=== PATIENT | male | born 2000 | race Caucasian/White ===

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

== ENCOUNTER 2024-04-04 17:17 | Emergency (ER) | payer MEDICAID, SELFPAY ==
[2024-04-04 17:20] VITALS: BP 125/107; PULSE 99; RESP 18; TEMP 36.6; O2SAT 98
--- NOTE | 2024-04-04 18:00 | EDS_ITS ---
HPI History of Present Illness Chief Complaint: Headache Informant: patient Onset/Context/Timing Onset: Weeks (2) Context: Sudden Timing: Intermittent Quality -Headache: Positive for Sharp and Dull Location: Left side of head Worsened by: Nothing Relieved by: Nothing Associated Symptoms/Injury Associated Symptoms: Negative for Fever, Nausea, Vomiting, Sore Throat, Sinus Pressure, Numbness, Tingling, Preceding Aura, Visual Changes, Blurred Vision, Photophobia or Visual Loss Narrative Narrative: Patient presents with a headache that has been intermittent over the past 2 weeks. Patient states that it comes on rather suddenly. Patient states nothing makes it better and nothing makes it worse. Patient states his pain is over the left side of his head. Patient describes his pain as sharp and dull. Patient denies any fevers or chills. Patient denies any nausea or vomiting. Patient denies any sore throat or sinus pressure. Patient denies any photophobia or visual changes. PFSH PFSH Home Medications ?Medication ?Instructions ?Recorded ?Last Taken ?Type NK 08/10/18 Unknown History Allergy/AdvReac Type Severity Reaction Status Date / Time No Known Allergies Allergy Verified 04/04/24 17:19 Family History Other Alcoholism /alcohol abuse Anxiety and depression Hypertension Surgical History History of oral surgery Social History Smoking Status: Current every day smoker tobacco type: e-cigarettes Electronic Cigarette Use: without nicotine alcohol intake: former substance use type: does not use additional social history: DOES NOT USE ASPIRIN DOES USE IBUPROFEN NEEDED ROS ROS ED Constitutional Constitutional ED: Denies chills or fever(s) Eyes Eyes: Denies blurry vision or change in vision ENT ENT ED: Denies rhinorrhea or sore throat Cardiovascular Cardiovascular: Denies chest pain or palpitations Respiratory/Chest Respiratory/Chest: Denies cough or dyspnea Gastrointestinal Gastrointestinal: Denies nausea or vomiting Genitourinary Genitourinary ED: Denies dysuria or hematuria Musculoskeletal Musculoskeletal: Reports back pain; Denies neck pain Integumentary Denies abscess or rash Neurologic Neurologic: Reports headache(s); Denies weakness Allergic/Immunologic Allergic/Immunologic ED: Denies mouth swelling or urticaria EXAM Physical Exam Const Vital Signs: 04/04/24 17:20 Temperature 97.9 F Temperature Source Temporal Pulse Rate 99 Respiratory Rate 18 Blood Pressure 125/107 H Blood Pressure Mean 113 Pulse Ox 98 Oxygen Delivery Method Room Air Positive well nourished and well developed General Appearance ED: well developed and NAD HEENT Reports moist mucous membranes atraumatic Eyes PERRL and EOMs intact bilaterally Neck supple, no meningeal signs and no JVD Resp normal respiratory effort and clear to auscultation bilaterally Cardio regular rate and regular rhythm GI non-tender and non-distended Neuro oriented x3, CN's II-XII intact bilaterally and no sensory deficits noted Srinath Coma Scale: document GCS findings Spontaneous Obeys Commands Oriented 15 Sensorium / Orientation: awake and alert Speech: speech normal Motor Exam: strength 5/5 throughout MDM MDM MDM Narrative Medical decision making narrative: Differential diagnosis includes migraine headache, tension headache, cluster headache, intracranial bleeding, and temporal arteritis. CT scan of the brain will be obtained to assess for intracranial bleeding. CBC will be obtained to assess for leukocytosis and anemia. Basic metabolic profile will be obtained to assess for electrolyte abnormality and renal function. Sed rate will be obtained to assess for temporal arteritis. Lab Data Attestation: I reviewed the patient's lab results. Lab results narrative: CBC was reviewed and was within normal limits. Basic metabolic profile was reviewed. BUN was slightly elevated at 22 and creatinine was slightly elevated at 1.36. Labs: Laboratory Results - last 24 hr 04/04/24 18:20 WBC 8.9 RBC 5.19 Hgb 15.9 Hct 47.1 MCV 90.8 MCH 30.6 MCHC 33.8 RDW Std Deviation 40.3 RDW Coeff of Sy 12.2 Plt Count 360 MPV 8.9 Immature Gran % (Auto) 0.200 Neut % (Auto) 62.4 Lymph % (Auto) 25.9 [place] % (Auto) 9.8 Eos % (Auto) 0.9 Baso % (Auto) 0.8 Absolute Neuts (auto) 5.6 Absolute Lymphs (auto) 2.31 Nucleated RBC % 0 Sodium 140 Potassium 3.9 Chloride 105 Carbon Dioxide 28.0 Anion Gap 7 BUN 22 H Creatinine 1.36 H Estim Creat Clear Calc 76.31 Est GFR (MDRD) Af Amer 84 Est GFR (MDRD) Non-Af 70 BUN/Creatinine Ratio 16.2 Glucose 84 Calcium 9.4 Treatment and Re-Evaluation Narrative: Smoking cessation was discussed. Patient was ordered IV fluids, Reglan, and Benadryl. Patient refused IV medications and CT scan. Patient states she just wanted to receive a pill for his headache. Patient states she did not want any lab work or CT scan done. Patient was advised that we evaluate for life- threatening causes of headaches in the emergency department. Patient left prior to signing out AGAINST MEDICAL ADVICE or receiving his results or instructions. Discharge Plan Triage Chief Complaint: Headache ED Provider: Leeroy Ventura Dx/Rx/DC Orders Clinical Impression: Headache, Smoker Prescriptions: No Action NK Primary Care Provider: Care Physician,No Primary Referrals: Care Physician,No Primary [Primary Care Provider] - Print Language: Vietnamese Disposition Disposition: Elopement
--- NOTE | 2024-04-04 18:07 | CT_ITS ---
EXAM: CT HEAD WITHOUT INTRAVENOUS CONTRAST CLINICAL INDICATION: Pain TECHNIQUE: Multiple axial images were obtained of the head without intravenous contrast. This CT exam was performed using one or more of the following dose reduction techniques: automated exposure control, adjustment of the mA and/or kV according to patient size, and/or use of iterative reconstruction technique. COMPARISON: No relevant prior studies available. FINDINGS: BRAIN AND EXTRA-AXIAL SPACES: Unremarkable. No intra- or extra-axial hemorrhage. No evidence of acute infarct. No intracranial mass or mass effect. There is preservation of the turner/white matter interface. Posterior fossa structures are unremarkable. Ventricles are appropriate for age. No hydrocephalus. Basal cisterns are patent. BONES/JOINTS: Unremarkable. No discrete lytic or blastic abnormalities. SINUSES: Unremarkable as visualized. Clear. MASTOID AIR CELLS: Unremarkable. Clear. ORBITS: Visualized globes, extraocular muscles, optic nerves and retrobulbar fat appear unremarkable. CT/Brain/Head without Contrast IMPRESSION: Negative head/brain CT without intravenous contrast. Electronically Signed: Jose Barnes MD at 19:00 EDT ,
[2024-04-04 18:34] LABS: Absolute Lymphocyte Count 2.31 X10^3/uL (0.83-4.51); Absolute Neutrophil Count 5.6 X10^3/uL (2.0-7.7); Basophil# 0.07 X10^3/uL; Basophil% 0.8 % (0-1); Eosinophil# 0.08 X10^3/uL; Eosinophils% 0.9 % (0-5); Hematocrit 47.1 % (40-54); Hemoglobin 15.9 g/dL (13.0-16.5); Lymphocyte # 2.31 X10^3/ul (0.83-4.51); Lymphocyte % 25.9 % (19-41); Mean Corp Hgb Conc 33.8 g/dL (32-36); Mean Corpuscular Hgb 30.6 pg (27.0-32.0); Mean Corpuscular Volume 90.8 fL (80-94); Mean Platelet Vol. 8.9 fl (6.2-12.0); Monocyte# 0.87 X10^3/uL; Monocyte% 9.8 % (0-10); NRBC Flagged by Analyzer 0 % (0-5); Neutrophil # 5.56 X10^3/uL (2.7-7.7); Neutrophil % 62.4 % (47-70); Platelet Count 360 K/mm3 (150-450); RBC Distribution Width CV 12.2 % (11.6-14.6); RBC Distribution Width SD 40.3 fl (35.1-43.9); Red Blood Count 5.19 M/mm3 (4.6-6.2); White Blood Count 8.9 K/mm3 (4.4-11.0)
--- NOTE | 2024-04-04 18:35 | ED.RN ---
Pt became agitated when this RN informed him of plan to place IV, draw labs, medicate through IV and obtain CT scan of head. Pt states I didn't want any of this stuff, states he left work for his headache, just wanted a pill and a work note. Pt states he and his girlfriend both came in and will need work notes. After educating pt on reason for IV, labs and CT scan pt agreed to let this RN place IV. After placing IV, pt became agitated yelling take it out, I don't want any of it. Pt declined all meds, states he'll go to the store and get a pill. Pt remains agreeable to obtain CT. After pt returned from CT scan he was observed leaving his room and going to girlfriend's room.
--- NOTE | 2024-04-04 18:46 | ED.RN ---
After locating pt in girlfriend's room, pt tells this RN I'm done, pt states he doesn't want any of test results, understands he'll be considered an elopement. updated.
[2024-04-04 18:48] LABS: Anion Gap 7 (5-15); BUN 22 mg/dL (7-18); BUN/Creat Ratio 16.2 RATIO (10-20); Calcium,Total 9.4 mg/dL (8.5-10.1); Chloride 105 mmol/L (98-107); Creatinine, Serum 1.36 mg/dL (0.70-1.30); EST Glomerular Filtration Rate 70 mL/min (>60); Est Glom Filt Rate - Afr Amer 84 mL/min (>60); Estimated Creatinine Clearance 76.31 ml/min; Glucose 84 mg/dL (74-106); Potassium 3.9 mmol/L (3.5-5.1); Sodium Level 140 mmol/L (136-145)
[2024-04-04 19:06] LABS: Erythrocyte Sedimentation Rate 6 mm/hr (0-20)
== END 2024-04-04 19:03 | disposition left against medical advice (07) ==
PROVIDERS: Emergency Provider Emergency Medicine; Visit Provider Emergency Medicine
DX: R51.9 Headache, unspecified (principal); F17.290 Nicotine dependence, other tobacco product, uncomplicated; Z53.29 Procedure and treatment not carried out because of patient's decision for other reasons
CPT/HCPCS: 70450; 80048; 85025; 85652; 96374; 96375; 99282; J7030; A4216

== ENCOUNTER 2024-05-28 00:52 | Emergency (ER) | payer MEDICAID, SELFPAY ==
[2024-05-28 00:54] VITALS: BP 137/89; PULSE 107; RESP 18; TEMP 36.4; O2SAT 99; BMI 18.8
[2024-05-28] MEDS: oxyCODONE 5 MG Tablet 10 MG PO (01:20)
--- NOTE | 2024-05-28 01:25 | RAD_ITS ---
INDICATION: FOOT INJURY EXAMINATION/TECHNIQUE: X-RAY - RIGHT XR Foot Min 3 Views COMPARISON: None. FINDINGS: 3 views of the right foot. BONES: Normal anatomic alignment without evidence of fracture or subluxation. No concerning bony lesion or abnormal sclerosis to suggest lesion. JOINTS: No significant degenerative change. SOFT TISSUES: Unremarkable. RAD/Foot min 3 Views IMPRESSION: No acute osseous abnormality of the right foot. Electronically Signed: Luigi Vo MD at 2:34 EDT ,
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
== END 2024-05-28 02:32 | disposition home or self-care (01) ==
PROVIDERS: Emergency Provider Emergency Medicine; Visit Provider Emergency Medicine
DX: S90.31XA Contusion of right foot, initial encounter (principal); F17.210 Nicotine dependence, cigarettes, uncomplicated; W20.8XXA Other cause of strike by thrown, projected or falling object, initial encounter; F17.290 Nicotine dependence, other tobacco product, uncomplicated; S90.811A Abrasion, right foot, initial encounter
CPT/HCPCS: 73630; 99283

== ENCOUNTER 2025-05-19 16:39 | Emergency (ER) | payer MEDICAID, SELFPAY ==
[2025-05-19 16:40] VITALS: BP 123/88; PULSE 105; RESP 16; TEMP 36.7; O2SAT 98; BMI 24.4
[2025-05-19 16:41] VITALS: BP 117/83; PULSE 99; RESP 19; TEMP 36.7; O2SAT 97
[2025-05-19] MEDS: HYDROcodone Bitartrate/Apap 5/325 Tablet PO (17:21)
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
[2025-05-19 17:41] VITALS: BP 115/79; PULSE 82; RESP 15; TEMP 36.6; O2SAT 99
[2025-05-19 18:00] VITALS: BP 111/71; PULSE 90; RESP 14; TEMP 36.8; O2SAT 99
[2025-05-19 18:09] VITALS: BP 111/71; PULSE 90; RESP 14; TEMP 36.5; O2SAT 99
== END 2025-05-19 18:12 | disposition home or self-care (01) ==
PROVIDERS: Emergency Provider Surgery; Referring Provider Surgery; Visit Provider Surgery
DX: T23.231A Burn of second degree of multiple right fingers (nail), not including thumb, initial encounter (principal); X19.XXXA Contact with other heat and hot substances, initial encounter; F41.9 Anxiety disorder, unspecified; Z79.899 Other long term (current) drug therapy; F17.290 Nicotine dependence, other tobacco product, uncomplicated; T31.0 Burns involving less than 10% of body surface; F17.210 Nicotine dependence, cigarettes, uncomplicated
CPT/HCPCS: 99282

== ENCOUNTER → 2025-09-05 | Outpatient (CLI) | payer MEDICAID, SELFPAY ==
--- NOTE | 2025-09-05 12:09 | EKG12_ITS ---
Test Reason : MED Blood Pressure : */* mmHG Vent. Rate : 88 BPM Atrial Rate : 88 BPM P-R Int : 128 ms QRS Dur : 82 ms QT Int : 338 ms P-R-T Axes : 66 91 43 degrees QTcB Int : 408 ms Normal sinus rhythm Rightward axis Borderline ECG Confirmed by ROBY BENITEZ, REYNALDO ([id number]), subeditor GEOVANY CORDOVA ([id number]) on 09/06/2025 6:26:10 AM Referred By: Anupama Mathis Confirmed By: REYNALDO CA MD
== END | disposition home or self-care (01) ==
DX: F32.A Depression, unspecified (principal)
CPT/HCPCS: 93005